=== PATIENT | female | born 1980 | race Caucasian/White ===

== ENCOUNTER 2017-04-03 18:55 | Emergency (ER) | payer OTHER ==
[~2017-04-03] VITALS: Ht 160 cm; Wt 99.8 kg
--- NOTE | 2017-04-03 19:05 | NUR ---
A/OX4, CAME TO ER W/ C/O FEVER, COUGH, BODYACHES, CHILLS X TUESDAY. THERAFLU W/ TYLENOL TAKEN AT 1700. NAD RR EVEN AND UNLABORED. PENDING ER MD BAEZ
[2017-04-03] MEDS ORDERED: IBUPROFEN 600 MG TABLET PO ONE ×3 (20:37→21:00)
[2017-04-03] MEDS ORDERED: ACETAMINOPHEN ES 500 MG TABLET ONE ×2 (20:37→20:45)
[2017-04-03 20:46] VITALS: BP 154/94
[2017-04-03] MEDS ORDERED: ACETAMINOPHEN ES 500 MG TABLET PO ONE (21:00)
== END 2017-04-03 20:47 | disposition home or self-care (01) ==
LOC: ER 19:01
DX: J11.1 Influenza due to unidentified influenza virus with other respiratory manifestations (principal); Z88.0 Allergy status to penicillin
CPT/HCPCS: 71045; 99283; A4606; Z7610

== ENCOUNTER 2019-06-08 00:48 | Emergency (ER) | payer MEDICAID, OTHER ==
[~2019-06-08] VITALS: Ht 160 cm; Wt 108.9 kg
--- NOTE | 2019-06-08 01:20 | NUR ---
BIBS TO ER BED 2. AAOX4. NOT IN RESP DISTRESS,REPORTING SOB BUT BREATHING EVEN AND UNLABORED. AMBULATORY. C/O EARACHE, COUGH AND FEVER SINCE TUESDAY WORST TODAY. PT IS AFEBRILE ORAL TEMP 99.0. MD WAS AT BEDSIDE. FOR EVAL. ORDERS RECEIVED NOTED AND CARRIED OUT. XRAY DONE AT BEDSIDE.
[2019-06-08] MEDS ORDERED: LEVOFLOXACIN (750 MG) 750 MG TABLET PO STA (01:41)
--- NOTE | 2019-06-08 02:00 | NUR ---
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
[2019-06-08] MEDS ORDERED: LEVOFLOXACIN (250MG) 250 MG TABLET ONE (02:01)
[2019-06-08] MEDS ORDERED: LEVOFLOXACIN (500MG) 500 MG TABLET ONE (02:02)
[2019-06-08 02:13] VITALS: BP 134/77
== END 2019-06-08 02:14 | disposition home or self-care (01) ==
LOC: ER 00:49
DX: U07.1 COVID-19 (principal); J12.89 Other viral pneumonia; H92.02 Otalgia, left ear
CPT/HCPCS: 71045-TC